=== PATIENT | male | born 1975 | race Caucasian/White ===

== ENCOUNTER 2016-08-31 17:53 | Observation (INO) | payer BC ==
--- NOTE | 2016-08-31 18:25 | EDM.PDOC ---
ED HISTORY OF PRESENT ILLNESS - General Chief Complaint: Cardiovascular Problem Stated Complaint: TACHYCARDIA Time Seen by Provider: 08/31/16 18:04 Source of Information: Reports: Patient History Limitations: Reports: No limitations - History of Present Illness INITIAL COMMENTS - FREE TEXT/NARRATIVE: Patient presents with tachycardia and hypertension. He says that at about noon today (six hours ago) he felt a slight pulsing in his head that lasted a couple hours. He says he has had that a few times in the past. He was sitting watching TV when this occurred. About half hour before came to ER he was feeling a fast heartbeat and checked his pulse with his blood lead relay tester at 196 bpm so he came in. He takes Lisinopril 40 mg for hypertension. He denies any chest pressure or tightness. He has had occasional sharp pains in lateral chest bilat that last 2 seconds and this has happened times in the past also. - Related Data Allergies/ADRs: Allergies Allergy/AdvReac Type Severity Reaction Status Date / Time Penicillins Allergy Cannot Verified 08/31/16 18:12 Remember Home Meds: Home Meds Lisinopril 40 mg PO DAILY 08/31/16 [History] atorvaSTATin [Lipitor] 10 mg PO BEDTIME 08/31/16 [History] Social & Family History - Tobacco Use Smoking Status *Q: Former Smoker Years of Tobacco use: 20 Packs/Tins Daily: 1 Used Tobacco, but Quit: Yes Month Tobacco Last Used: July Tobacco Use Comment: last used tobacco 1 month ago, last used nicotine cessation product a week ago Second Hand Smoke Exposure: Yes - Caffeine Use Caffeine Use: Reports: Coffee - Recreational Drug Use Recreational Drug Use: No ED ROS GENERAL - Review of Systems Review Of Systems: See Below Constitutional: Denies: fever (not aware of any but temp is 101 in ER), chills, malaise, weakness, night sweats, diaphoresis, decreased appetite HEENT: Reports: No symptoms. Denies: Throat pain, Vertigo, Vision change Respiratory: Reports: cough (very slight for a couple days). Denies: shortness of breath, wheezing, sputum Cardiovascular: Reports: Blood pressure problem, Palpitations. Denies: Chest pain, Lightheadedness, Syncope Endocrine: Denies: fatigue GI/Abdominal: Denies: Abdominal pain, Constipation, Diarrhea, Vomiting : Denies: discharge, dysuria, flank pain, frequency Musculoskeletal: Denies: neck pain, shoulder pain, arm pain, back pain Skin: Denies: cyanosis, jaundice, mottled, pallor, diaphoresis Neurological: Denies: confusion, dizziness, headache, seizure, syncope, tingling , trouble speaking, difficulty walking, weakness, change in speech, gait disturbance Psychiatric: Denies: Agitation, Anxiety, Confusion ED EXAM, GENERAL - Physical Exam Exam: See Below Exam Limited By: No limitations General Appearance: alert, WD/WN, no apparent distress Eye Exam: bilateral eye: EOMI, normal inspection, PERRL Ears: normal external exam, hearing grossly normal Nose: normal inspection, normal mucosa, no blood Throat/Mouth: Normal lips, Normal voice, No airway compromise Head: atraumatic, normocephalic Neck: normal inspection, supple, non-tender, full range of motion Respiratory/Chest: no respiratory distress, lungs clear, normal breath sounds, no accessory muscle use Cardiovascular: normal peripheral pulses, regular rate, rhythm, no JVD, no murmur GI/Abdominal: normal bowel sounds, soft, non tender, no organomegaly Back Exam: No: CVA tenderness (L), CVA tenderness (R) Extremities: normal inspection, normal range of motion, non-tender, no pedal edema Neurological: alert, oriented, CN II-XII intact, normal cognition, no motor/ sensory deficits Psychiatric: normal affect, normal mood Skin Exam: Warm, Dry, Intact, Normal color, No rash Lymphatic: no adenopathy Course - Vital Signs Last Recorded V/S: Last Vital Signs Temp 97.3 F 08/31/16 22:45 Pulse 71 08/31/16 23:08 Resp 20 08/31/16 22:45 BP 142/64 H 08/31/16 23:08 Pulse Ox 99 08/31/16 22:45 - Orders/Labs/Meds Orders: Active Orders 24 hr Category Date Time Status CULTURE BLOOD [BC] Stat Lab 08/31/16 18:20 Received CULTURE BLOOD [BC] Stat Lab 08/31/16 22:35 Received Blood Culture x2 Reflex Set [OM.PC] Stat Oth 08/31/16 22:23 Ordered Medication Orders Atorvastatin Calcium (Lipitor) 10 mg PO BEDTIME DONA Lisinopril (Prinivil) 40 mg PO DAILY DONA Labs: Laboratory Tests 08/31/16 08/31/16 08/31/16 Range/Units 18:20 18:20 18:20 WBC 10.2 H (5.0-10.0) 10^3/uL RBC 5.59 (4.50-6.00) 10^6/uL Hgb 16.3 (13.0-17.0) g/dL Hct 49.3 (40.0-52.0) % MCV 88.3 (82.0-92.0) fL MCH 29.1 (27.0-31.0) pg MCHC 33.0 (32.0-36.0) g/dL RDW 12.1 (11.5-14.5) % Plt Count 251 (150-300) 10^3/uL MPV 9.3 (7.4-10.4) fL Neut % (Auto) 53.7 (50.0-70.0) % Lymph % (Auto) 35.9 (20.0-40.0) % [place] % (Auto) 7.6 (2.0-8.0) % Eos % (Auto) 2.2 (1.0-3.0) % Baso % (Auto) 0.6 (0.0-1.0) % Neut # 5.4 (2.5-7.0) 10^3/uL Lymph # 3.7 (1.0-4.0) 10^3/uL [place] # 0.8 (0.1-0.8) 10^3/uL Eos # 0.2 (0.1-0.3) 10^3/uL Baso # 0.1 (0.0-0.1) 10^3/uL ESR 20 H (0-15) mm/hr Sodium 142 (136-145) mmol/L Potassium 3.8 (3.3-5.3) mmol/L Chloride 102 (98-115) mmol/L Carbon Dioxide 24.4 (21.0-32.0) mmol/L BUN 16 (6-25) mg/dL Creatinine 0.92 (0.51-1.17) mg/dL Est Cr Clr Drug Dosing 112.41 mL/min Estimated GFR (MDRD) > 60 mL/min Glucose 117 H (70-110) mg/dL Calcium 9.3 (8.7-10.3) mg/dL Troponin I 0.06 (0.00-0.070) ng/mL Specimen Type Urine Color (YELLOW) Urine Appearance (CLEAR) Urine pH (5.0-9.0) Ur Specific [place] (1.005-1.030) Urine Protein (NEGATIVE) mg/dL Urine Glucose (UA) (NEGATIVE) mg/dL Urine Ketones (NEGATIVE) mg/dL Urine Occult Blood (NEGATIVE) Urine Nitrite (NEGATIVE) Urine Bilirubin (NEGATIVE) Urine Urobilinogen (0.2-1.0) E.U./dL Ur Leukocyte Esterase (NEGATIVE) Urine RBC /HPF Urine WBC /HPF Ur Epithelial Cells /LPF Urine Bacteria (NONE TO FEW) /HPF 08/31/16 08/31/16 Range/Units 19:40 21:25 WBC (5.0-10.0) 10^3/uL RBC (4.50-6.00) 10^6/uL Hgb (13.0-17.0) g/dL Hct (40.0-52.0) % MCV (82.0-92.0) fL MCH (27.0-31.0) pg MCHC (32.0-36.0) g/dL RDW (11.5-14.5) % Plt Count (150-300) 10^3/uL MPV (7.4-10.4) fL Neut % (Auto) (50.0-70.0) % Lymph % (Auto) (20.0-40.0) % [place] % (Auto) (2.0-8.0) % Eos % (Auto) (1.0-3.0) % Baso % (Auto) (0.0-1.0) % Neut # (2.5-7.0) 10^3/uL Lymph # (1.0-4.0) 10^3/uL [place] # (0.1-0.8) 10^3/uL Eos # (0.1-0.3) 10^3/uL Baso # (0.0-0.1) 10^3/uL ESR (0-15) mm/hr Sodium (136-145) mmol/L Potassium (3.3-5.3) mmol/L Chloride (98-115) mmol/L Carbon Dioxide (21.0-32.0) mmol/L BUN (6-25) mg/dL Creatinine (0.51-1.17) mg/dL Est Cr Clr Drug Dosing mL/min Estimated GFR (MDRD) mL/min Glucose (70-110) mg/dL Calcium (8.7-10.3) mg/dL Troponin I 0.07 (0.00-0.070) ng/mL Specimen Type Urincc Urine Color Yellow (YELLOW) Urine Appearance Clear (CLEAR) Urine pH 6.0 (5.0-9.0) Ur Specific [place] 1.020 (1.005-1.030) Urine Protein Negative (NEGATIVE) mg/dL Urine Glucose (UA) Negative (NEGATIVE) mg/dL Urine Ketones 15 H (NEGATIVE) mg/dL Urine Occult Blood Negative (NEGATIVE) Urine Nitrite Negative (NEGATIVE) Urine Bilirubin Negative (NEGATIVE) Urine Urobilinogen 0.2 (0.2-1.0) E.U./dL Ur Leukocyte Esterase Negative (NEGATIVE) Urine RBC 0-5 /HPF Urine WBC 0-5 /HPF Ur Epithelial Cells Rare /LPF Urine Bacteria Not seen (NONE TO FEW) /HPF Meds: Medications Generic Name Dose Route Start Last Admin Trade Name Freq PRN Reason Stop Dose Admin Atorvastatin Calcium 10 mg 09/01/16 21:00 Lipitor PO BEDTIME DONA Lisinopril 40 mg 09/01/16 09:00 Prinivil PO DAILY DONA Discontinued Medications Generic Name Dose Route Start Last Admin Trade Name Freq PRN Reason Stop Dose Admin Sodium Chloride 1,000 mls @ 999 mls/hr 08/31/16 18:37 08/31/16 18:47 Normal Saline IV 08/31/16 19:37 999 mls/hr .BOLUS ONE Administration Metoprolol Tartrate 5 mg 08/31/16 18:23 08/31/16 18:35 Lopressor IVPUSH 08/31/16 18:24 5 mg ONETIME ONE Administration Metoprolol Tartrate 50 mg 08/31/16 19:38 08/31/16 23:08 Lopressor PO 08/31/16 19:39 50 mg ONETIME ONE Administration - Re-Assessments/Exams Free Text/Narrative Re-Assessment/Exam: 08/31/16 19:34 Trop is 0.06, patient is comfortable with heart rate and pressure down nicely after the metoprolol. Will repeat troponin at 9:30. 08/31/16 22:44 Second trop is 0.07; talked with Dr. Cloud and the painter chassis in [facility], Dr. Pratt who recommends getting sed rate, blood cultures, observation tonight and echocardiogram tomorrow. Discussed this with the patient who agrees with plan. Dr. Cloud also wants a CXR tonight before admission. 09/01/16 00:30 CXR is clear per report and my view. Departure - Departure Time of Disposition: 23:00 Disposition: Refer to Observation Condition: good Clinical Impression: Tachycardia Fever Qualifiers: Fever type: unspecified Qualified Code(s): R50.9 - Fever, unspecified High blood pressure Qualifiers: Hypertension type: essential hypertension Qualified Code(s): I10 - Essential ( primary) hypertension - My Orders Last 24 Hours: My Active Orders 08/31/16 18:20 CULTURE BLOOD [BC] Stat 08/31/16 22:23 Blood Culture x2 Reflex Set [OM.PC] Stat 08/31/16 22:35 CULTURE BLOOD [BC] Stat - Assessment/Plan Last 24 Hours: My Active Orders 08/31/16 18:20 CULTURE BLOOD [BC] Stat 08/31/16 22:23 Blood Culture x2 Reflex Set [OM.PC] Stat 08/31/16 22:35 CULTURE BLOOD [BC] Stat
[2016-08-31] MEDS: Metoprolol Tartrate 5 MG/5 ML SDV IVPUSH ONE (18:35)
[2016-08-31] MEDS: Sodium Chloride 0.9% 1,000 ML IV ONE (18:47)
[2016-08-31 18:52] LABS: CHLORIDE,CL 102 mmol/L (98-115); SODIUM,NA 142 mmol/L (136-145)
[2016-08-31] MEDS: Metoprolol Tartrate 50 MG Tab PO ONE (23:08)
[2016-09-01 06:42] VITALS: BP 135/76
[2016-09-01] MEDS ORDERED: Lidocaine 2% 100 MG/5 ML Syringe IVPUSH PRN (07:55)
[2016-09-01] MEDS ORDERED: Nitroglycerin 0.4 MG Tab.SL SL PRN (07:55)
[2016-09-01] MEDS ORDERED: Atropine 0.1 MG/ML 10 ML Syringe IVPUSH PRN (07:55)
[2016-09-01] MEDS ORDERED: EPINEPHrine 1:10,000 1 MG/10 ML Syringe IVPUSH PRN (07:55)
[2016-09-01] MEDS: Lisinopril 20 MG Tab PO SCH (08:18)
--- NOTE | 2016-09-01 10:07 | PCM.HP ---
H&P History of Present Illness - General Date of Service: 09/01/16 Admit Problem/Dx: Admission Diagnosis/Problem Admission Diagnosis/Problem Fever of unknown origin Source of Information: Family, RN, Significant Other History Limitations: Reports: No limitations - History of Present Illness Initial Comments - Free Text/Narative: this 40-year-old male was admitted to the ED last night Due to tachycardia and high blood pressure. He was noted for him to have a temperature of 101 with a slight elevated white count last night. He does not claim to be ill notice he had a high heart rate of 6 hours prior to coming into the ED when he felt pulsating in his head. He had been grilling turkeys most of the day however he was sitting down watching television when this occurred. He does have hypertension and is on lisinopril 40 mg. Denied any shortness of breath but he did admit to occasional sharp pain in his chest wall lasting just seconds in times past however not recently. His spouse states he does have anxiety issues and seems to get himself worked up at times. - Related Data Allergies/Adverse Reactions: Allergies Allergy/AdvReac Type Severity Reaction Status Date / Time Penicillins Allergy Cannot Verified 08/31/16 18:12 Remember Home Medications: Home Meds Lisinopril 40 mg PO DAILY 08/31/16 [History] atorvaSTATin [Lipitor] 10 mg PO BEDTIME 08/31/16 [History] Past Medical History HEENT History: Reports: Allergic rhinitis Cardiovascular History: Reports: High cholesterol, Hypertension - Infectious Disease History Infectious Disease History: Reports: Chicken pox - Past Surgical History Cardiovascular Surgical History: Reports: None Male Surgical History: Reports: Other (see below) Other Male Surgeries/Procedures: testical removed years ago due to injury Social & Family History - Family History Cardiac: Reports: Blood clots/VTE/DVT, Bypass, CAD, Stent Endocrine/Metabolic: Reports: Diabetes, type II Oncologic: Reports: Brain, Ovarian - Tobacco Use Smoking Status *Q: Former Smoker Years of Tobacco use: 20 Packs/Tins Daily: 1 Used Tobacco, but Quit: Yes Month Tobacco Last Used: July Tobacco Use Comment: last used tobacco 1 month ago, last used nicotine cessation product a week ago Second Hand Smoke Exposure: Yes - Caffeine Use Caffeine Use: Reports: Coffee - Recreational Drug Use Recreational Drug Use: No H&P Review of Systems - Review of Systems: Review Of Systems: See Below General: Reports: fever (no fever now but 101 in the ED last night). Denies: chills, malaise, weakness, fatigue, night sweats, diaphoresis, decreased appetite, weight gain (actually lost some weight) HEENT: Reports: no symptoms Pulmonary: Reports: no symptoms Cardiovascular: Reports: no symptoms Gastrointestinal: Reports: No symptoms Genitourinary: Reports: no symptoms Musculoskeletal: Reports: no symptoms Psychiatric: Reports: anxiety (situational anxiety at times) Neurological: Reports: no symptoms Hematologic/Lymphatic: Reports: no symptoms Exam - Exam Exam: See Below - Vital Signs Vital Signs: Last Vital Signs Temp 97.6 F 09/01/16 06:42 Pulse 69 09/01/16 06:42 Resp 16 09/01/16 06:42 BP 135/76 09/01/16 08:18 Pulse Ox 99 09/01/16 06:42 Weight: 210 lb - Exam Quality Assessment: No: supplemental oxygen General: alert, oriented, 4 HEENT: Mucosa moist & pink Neck: supple, trachea midline, 2 Lungs: Clear to auscultation, Normal respiratory effort Cardiovascular: regular rate, regular rhythm Extremities: No: edema Peripheral Pulses: 2+: radial (L), radial (R) Skin: other (multiple history of cysts throughout back) Neurological: normal speech Neuro Extensive - Mental Status: alert, oriented x3, normal mood/affect, normal cognition Psychiatric: alert, normal affect, normal mood, anxious (appears slightly anxious) - Patient Data Lab Results last 24 hrs: Laboratory Results - last 24 hr 09/01/16 09/01/16 Range/Units 06:10 06:10 WBC 8.2 (5.0-10.0) 10^3/uL RBC 5.23 (4.50-6.00) 10^6/uL Hgb 15.5 (13.0-17.0) g/dL Hct 45.9 (40.0-52.0) % MCV 87.8 (82.0-92.0) fL MCH 29.6 (27.0-31.0) pg MCHC 33.7 (32.0-36.0) g/dL RDW 12.0 (11.5-14.5) % Plt Count 229 (150-300) 10^3/uL MPV 10.1 (7.4-10.4) fL Neut % (Auto) 61.7 (50.0-70.0) % Lymph % (Auto) 28.2 (20.0-40.0) % [place] % (Auto) 7.6 (2.0-8.0) % Eos % (Auto) 1.6 (1.0-3.0) % Baso % (Auto) 0.9 (0.0-1.0) % Neut # 5.1 (2.5-7.0) 10^3/uL Lymph # 2.3 (1.0-4.0) 10^3/uL [place] # 0.6 (0.1-0.8) 10^3/uL Eos # 0.1 (0.1-0.3) 10^3/uL Baso # 0.1 (0.0-0.1) 10^3/uL Troponin I 0.04 (0.00-0.070) ng/mL Result Diagrams: 09/01/16 06:10 08/31/16 18:20 EKG INTERPRETATION EKG Date: 08/31/16 Time: 18:00 Rhythm: NSR Rate (beats/min): 112 *Q Meaningful Use (ADM) - VTE *Q VTE Criteria *Q: - Stroke *Q Stroke Criteria *Q: - AMI *Q AMI Criteria *Q: Problem List Initiated/Reviewed/Updated: Yes Orders Last 24hrs: Active Orders 24 hr Category Date Time Status Bedrest Bathroom Privileges [] ASDIRECTED Care 08/31/16 23:29 Active Cardiac Monitoring [] 0300,0700,1100,1500,1900,2300 Care 08/31/16 22:35 Active Pulse Oximetry [RC] PRN Care 08/31/16 23:29 Active Vital Signs [RC] 0300,0700,1100,1500,1900,2300 Care 08/31/16 23:29 Active Atropine [Atropine 0.1 MG/ML] Med 09/01/16 07:55 Active 0 mg IVPUSH ASDIRECTED PRN EPINEPHrine [EPINEPHrine 1:10,000] Med 09/01/16 07:55 Active 1 mg IVPUSH ASDIRECTED PRN Lidocaine 2% [Xylocaine 2%] Med 09/01/16 07:55 Active 0 mg IVPUSH ASDIRECTED PRN Lisinopril [Prinivil] Med 09/01/16 09:00 Active 40 mg PO DAILY Nitroglycerin [Nitrostat] Med 09/01/16 07:55 Active 0.4 mg SL ASDIRECTED PRN atorvaSTATin [Lipitor] Med 09/01/16 21:00 Active 10 mg PO BEDTIME Resuscitation Status Routine Resus Stat 09/01/16 04:50 Ordered Medication Orders Atorvastatin Calcium (Lipitor) 10 mg PO BEDTIME DONA Atropine Sulfate (Atropine 0.1 Mg/Ml) 0 mg IVPUSH ASDIRECTED PRN PRN Reason: Heart Epinephrine HCl (Epinephrine 1:10,000) 1 mg IVPUSH ASDIRECTED PRN PRN Reason: Heart Lidocaine HCl (Xylocaine 2%) 0 mg IVPUSH ASDIRECTED PRN PRN Reason: Heart Lisinopril (Prinivil) 40 mg PO DAILY DONA Last Admin: 09/01/16 08:18 Dose: 40 mg Nitroglycerin (Nitrostat) 0.4 mg SL ASDIRECTED PRN PRN Reason: Heart Assessment/Plan Comment:: this 40-year-old male was admitted to the ED last night Due to tachycardia and high blood pressure. He was noted for him to have a temperature of 101 with a slight elevated white count last night. He does not claim to be ill notice he had a high heart rate of 6 hours prior to coming into the ED when he felt pulsating in his head. He had been grilling turkeys most of the day however he was sitting down watching television when this occurred. He does have hypertension and is on lisinopril 40 mg. Denied any shortness of breath but he did admit to occasional sharp pain in his chest wall lasting just seconds in times past however not recently. His spouse states he does have anxiety issues and seems to get himself worked up at times. he was admitted to the ED on telemetry for rule out MA. In the ED he was given oral and IV metoprolol IMPRESSION/PLAN rule out myocardial infarction, this has been ruled out Hypertension, early on lisinopril 40 mg by mouth daily Anxiety, situational Sinus tachycardia, much improved. Hyperlipidemia on Lipitor overall plan; patient will be discharged today. Plan is to outpatient echocardiogram,, and beta jaime, decrease lisinopril limited Xanax
--- NOTE | 2016-09-01 10:43 | PCM.DCSUM1 ---
Discharge Summary - Hospital Course Brief History: Darshan is a 40-year-old male who came through the ED last night for tachycardia and high blood pressure. He was noted for him to have a temperature of 101 with a slight elevated white count last night 10.2 when he got to the ED. He does not claim to be ill notice he had a high heart rate of 6 hours prior to coming into the ED when he felt his heart rate pulsating in his head. He had been grilling turkeys most of the day however he was sitting down watching television when this occurred. He does have hypertension and is on lisinopril 40 mg. Denied any shortness of breath but he did admit to occasional sharp pain in his chest wall lasting just seconds in times past however not recently. His spouse states he does have anxiety issues and seems to get himself worked up at times. he was admitted to the ED on telemetry for rule out [place]. In the ED he was given oral and IV metoprolol was admitted to observation. - Discharge Data Discharge Date: 09/01/16 Discharge Disposition: Home, Self-Care 01 Condition: Good - Patient Summary/Data Recommended Follow-up Testing/Procedures: he will receive an outpatient echocardiogram Hospital Course: as his hospital course went well quite uneventful, white count went down, blood pressure went down along with heart rate. He did receive metoprolol in the ED both oral and IV. he had no chest pain or no ectopy. EKG on admission did show sinus tachycardia heart rate 112. HEENT no fever, no cough no chest pain throat was normal no exudate no abdominal pain or any other acute illness. His troponins were normal x3 - Patient Instructions Diet: Low Sodium Diet, Other: DASH diet. Limit caffeine intake to 3 cups/day Activity: Rest and Relax Today Driving: May Drive Today Showering/Bathing: May Shower Notify Provider of: Fever Other/Special Instructions: report any more fast heart rate dizziness or chest pain. Report any fever or cough. - Discharge Plan Prescriptions/Med Rec: ALPRAZolam [Xanax] 0.25 mg PO BID PRN #30 tablet PRN Reason: Anxiety Lisinopril 20 mg PO DAILY #90 tablet Metoprolol Succinate [Toprol XL] 25 mg PO DAILY #60 tab.er Home Medications: Home Meds atorvaSTATin [Lipitor] 10 mg PO BEDTIME 08/31/16 [History] ALPRAZolam [Xanax] 0.25 mg PO BID PRN #30 tablet 09/01/16 [Rx] Lisinopril 20 mg PO DAILY #90 tablet 09/01/16 [Rx] Metoprolol Succinate [Toprol XL] 25 mg PO DAILY #60 tab.er 09/01/16 [Rx] Referrals: Kathryn Elam MD [Primary Care Provider] - (Anytime next week, or with Raul. ) - Discharge Summary/Plan Comment DC Time >30 min.: No Discharge Summary/Plan Comment: FINAL DIAGNOSIS Rule out myocardial infarction, this has been ruled out Hypertension, decrease lisinopril from 40 mg to 20 mg daily since added metoprolol, added DASH Diet. Anxiety, situational. low-dose Xanax when necessary Sinus tachycardia, much improved. Hyperlipidemia on Lipitor. overall plan; patient will be discharged today. Plan is for outpatient echocardiogram, Add beta jaime, decrease lisinopril, limited Xanax - Patient Data Vitals - Most Recent: Last Vital Signs Temp 97.6 F 09/01/16 06:42 Pulse 69 09/01/16 06:42 Resp 16 09/01/16 06:42 BP 135/76 09/01/16 08:18 Pulse Ox 99 09/01/16 06:42 Weight - Most Recent: 210 lb I&O - Last 24 hours: Intake & Output 08/31/16 09/01/16 09/01/16 22:59 06:59 14:59 Intake Total 300 Output Total 1400 Balance -1100 Lab Results - Last 24 hrs: Laboratory Results - last 24 hr 09/01/16 09/01/16 Range/Units 06:10 06:10 WBC 8.2 (5.0-10.0) 10^3/uL RBC 5.23 (4.50-6.00) 10^6/uL Hgb 15.5 (13.0-17.0) g/dL Hct 45.9 (40.0-52.0) % MCV 87.8 (82.0-92.0) fL MCH 29.6 (27.0-31.0) pg MCHC 33.7 (32.0-36.0) g/dL RDW 12.0 (11.5-14.5) % Plt Count 229 (150-300) 10^3/uL MPV 10.1 (7.4-10.4) fL Neut % (Auto) 61.7 (50.0-70.0) % Lymph % (Auto) 28.2 (20.0-40.0) % [place] % (Auto) 7.6 (2.0-8.0) % Eos % (Auto) 1.6 (1.0-3.0) % Baso % (Auto) 0.9 (0.0-1.0) % Neut # 5.1 (2.5-7.0) 10^3/uL Lymph # 2.3 (1.0-4.0) 10^3/uL [place] # 0.6 (0.1-0.8) 10^3/uL Eos # 0.1 (0.1-0.3) 10^3/uL Baso # 0.1 (0.0-0.1) 10^3/uL Troponin I 0.04 (0.00-0.070) ng/mL Med Orders - Current: Current Medications Atorvastatin Calcium (Lipitor) 10 mg PO BEDTIME [facility] Atropine Sulfate (Atropine 0.1 Mg/Ml) 0 mg IVPUSH ASDIRECTED PRN PRN Reason: Heart Epinephrine HCl (Epinephrine 1:10,000) 1 mg IVPUSH ASDIRECTED PRN PRN Reason: Heart Lidocaine HCl (Xylocaine 2%) 0 mg IVPUSH ASDIRECTED PRN PRN Reason: Heart Lisinopril (Prinivil) 40 mg PO DAILY [facility] Last Admin: 09/01/16 08:18 Dose: 40 mg Nitroglycerin (Nitrostat) 0.4 mg SL ASDIRECTED PRN PRN Reason: Heart Discontinued Medications Sodium Chloride (Normal Saline) 1,000 mls @ 999 mls/hr IV .BOLUS ONE Stop: 08/31/16 19:37 Last Admin: 08/31/16 18:47 Dose: 999 mls/hr Metoprolol Tartrate (Lopressor) 5 mg IVPUSH ONETIME ONE Stop: 08/31/16 18:24 Last Admin: 08/31/16 18:35 Dose: 5 mg Metoprolol Tartrate (Lopressor) 50 mg PO ONETIME ONE Stop: 08/31/16 19:39 Last Admin: 08/31/16 23:08 Dose: 50 mg *Q Meaningful Use (DIS) - VTE *Q VTE Criteria *Q: - Stroke *Q Stroke Criteria *Q: - AMI *Q AMI Criteria *Q:
[2016-09-01] MEDS ORDERED: atorvaSTATin 10 MG Tab PO SCH (21:00)
== END 2016-09-01 10:50 | disposition home or self-care (01) ==
LOC: KA.ED 17:53 → KA.MS 22:33
PROVIDERS: ADMIT Physician Assistant Surgical; ATTEND Family Medicine
DX: I10 Essential (primary) hypertension (principal); F41.8 Other specified anxiety disorders; R00.0 Tachycardia, unspecified; E78.5 Hyperlipidemia, unspecified; Z79.899 Other long term (current) drug therapy; Z88.0 Allergy status to penicillin; Z87.891 Personal history of nicotine dependence
CPT/HCPCS: 36415; 71020; 80048; 81001; 84484; 85025; 85651; 87040; 87804; 93005; 96361; 96374; 99285; A9270-GY; G0378; J3490; J7030